=== PATIENT | female | born 1985 | race Caucasian/White ===

== ENCOUNTER 2024-06-11 09:36 | Outpatient (RCR) | payer OTHER, SELFPAY ==
[2024-06-11] MEDS: RHO(D) IMMUNE GLOBULIN 300 MCG/2 ML SYRINGE IM (16:25)
--- NOTE | 2024-08-16 12:12 | P.HP_ITS ---
H&P: HPI History of Present Illness Date/Time: 08/16/24 12:12 Chief Complaint: Repeat section Narrative: This is a 39-year-old 3 para 2 whose last menstrual period was 11/16/2023, EDC is 08/29/2024, confirmed by 10 week ultrasound who presents at 39 weeks gestation for repeat section. She is positive for group B strep she received RhoGAM at 28 weeks she has otherwise had an uncomplicated normal . [facility] Social History Social History Smoking status: Never smoker Alcohol intake: current Meds Home Medications and Allergies Home Medications Medication Instructions Recorded Confirmed Type No Home Medications 04/12/21 04/12/21 History Allergies Allergy/AdvReac Type Severity Reaction Status Date / Time No Known Allergies Allergy Verified 04/12/21 14:32 Exam Const: General: cooperative, healthy appearing and comfortable Nutritional Appearance: average body habitus Orientation/consciousness: oriented to person, oriented to place and oriented to time HENMT: Head: normal to inspection Resp: Effort & Inspection: normal respiratory effort Cardio: Rate: regular rate Rhythm: regular rhythm Heart sounds: S1 normal heart sound present and S2 normal heart sound present GI: Inspection: normal to inspection (Gravid soft uterus) Auscultation: normal bowel sounds : External Female Exam: normal external appearance Speculum Exam - Vagina: normal appearance of the vagina Speculum Exam - Cervix: normal appearance of the cervix Bimanual exam- vagina & uterus: enlarged Assessment and Plan Assessment and plan (1) Term : Code(s): Z34.90 - Encounter for supervision of normal , unspecified, unspecified trimester Status: Acute (2) Previous section: Code(s): Z98.891 - History of uterine scar from previous surgery Status: Acute (3) Positive testing for group B Streptococcus: Code(s): B95.1 - Streptococcus, group B, as the cause of diseases classified elsewhere Status: Acute Assessment and Plan: Repeat low-transverse section
== END 2024-09-09 23:59 | disposition home or self-care (01) ==
LOC: ANHLAB 09:36
PROVIDERS: Visit Provider Obstetrics & Gynecology
DX: Z29.13 Encounter for prophylactic Rho(D) immune globulin (principal); O36.0190 Maternal care for anti-D [Rh] antibodies, unspecified trimester, not applicable or unspecified; Z3A.00 Weeks of gestation of pregnancy not specified
CPT/HCPCS: 36415; 85461; 86850; 86900; 86901; 90384; J2790

== ENCOUNTER 2024-08-21 12:13 | Outpatient (CLI) | payer OTHER, SELFPAY ==
[2024-08-21 13:11] LABS: Hematocrit 34.5 % (37.0-47.0); Hemoglobin 11.5 g/dL (12.0-15.0); Mean Corpuscular HGB Conc 33.3 g/dl (32-36); Mean Corpuscular Hemoglobin 32.4 pg (26-34); Mean Corpuscular Volume 97.2 fl (80-100); Mean Platelet Volume 11.9 fl (7.4-10.4); Platelet Count Result 193 k/mm3 (150-375); Red Blood Count 3.55 M/mm3 (4.2-5.4); White Blood Count 6.4 K/mm3 (4.5-10.0)
[2024-08-21 13:47] LABS: Rapid Plasma Reagin Non-Reactive (NonReactive)
== END 2024-08-21 12:14 | disposition home or self-care (01) ==
PROVIDERS: Visit Provider Obstetrics & Gynecology
DX: Z34.93 Encounter for supervision of normal pregnancy, unspecified, third trimester (principal); Z3A.00 Weeks of gestation of pregnancy not specified
CPT/HCPCS: 36415; 85027; 86592; 86850; 86900; 86901

== ENCOUNTER 2024-08-22 05:45 | Inpatient (IN) | payer OTHER, SELFPAY ==
--- NOTE | 2024-08-16 12:15 | HP_ITS ---
This report was moved to the correct visit on 08/27/2024. The original report was signed by Cameron Mejia on 08/16/24 1215. ADDENDUM review of systems: Noncontributory Addendum Documented By: Cameron Fried MD 08/27/24721 Addendum Signed By: <Electronically signed by Cameron Fried MD> 08/27/24721 H&P: HPI History of Present Illness Date/Time: 08/16/24 12:12 Chief Complaint: Repeat section Narrative: This is a 39-year-old 3 para 2 whose last menstrual period was 11/16/2023, EDC is 08/29/2024, confirmed by 10 week ultrasound who presents at 39 weeks gestation for repeat section. She is positive for group B strep she received RhoGAM at 28 weeks she has otherwise had an uncomplicated normal . [facility] Social History Social History Smoking status: Never smoker Alcohol intake: current Meds Home Medications and Allergies Home Medications Medication Instructions Recorded Confirmed Type No Home Medications 04/12/21 04/12/21 History Allergies Allergy/AdvReac Type Severity Reaction Status Date / Time No Known Allergies Allergy Verified 04/12/21 14:32 Exam Const: General: cooperative, healthy appearing and comfortable Nutritional Appearance: average body habitus Orientation/consciousness: oriented to person, oriented to place and oriented to time HENMT: Head: normal to inspection Resp: Effort & Inspection: normal respiratory effort Cardio: Rate: regular rate Rhythm: regular rhythm Heart sounds: S1 normal heart sound present and S2 normal heart sound present GI: Inspection: normal to inspection (Gravid soft uterus) Auscultation: normal bowel sounds : External Female Exam: normal external appearance Speculum Exam - Vagina: normal appearance of the vagina Speculum Exam - Cervix: normal appearance of the cervix Bimanual exam- vagina & uterus: enlarged Assessment and Plan Assessment and plan (1) Term : Code(s): Z34.90 - Encounter for supervision of normal , unspecified, unspecified trimester Status: Acute (2) Previous section: Code(s): Z98.891 - History of uterine scar from previous surgery Status: Acute (3) Positive testing for group B Streptococcus: Code(s): B95.1 - Streptococcus, group B, as the cause of diseases classified elsewhere Status: Acute Assessment and Plan: Repeat low-transverse section This report may have been done utilizing a voice recognition system. Attempts have been made to correct errors. However, there may be uncorrected grammatical, spelling, and recognition errors present. Report Initialized date/time: Cameron Mejia MD 08/16/24 / 5 Electronically signed by: Cameron Mejia MD 08/16/24 1215 [facility]
[2024-08-22] VITALS (51 sets, daily range): BP systolic 99–172; BP diastolic 66–120; PULSE 66–97; RESP 16–20; TEMP 36.1–36.9; O2SAT 96–100; BMI 25.4; BMI 25.0
[2024-08-22] MEDS: ACETAMINOPHEN 500 MG TABLET 1000 MG PO (06:16)
[2024-08-22] MEDS: LACTATED RINGERS 1,000 ML 125 ML IV CONT ×2 (06:17→07:25)
--- NOTE | 2024-08-22 06:21 | LDADM ---
This patient, Debbie Morgan, was admitted to Labor/Delivery/Recovery 119 on 08/22/24 at 05:45. Plans for labor, pain management and were discussed with patient. Patient/family oriented to hospital policies and general routines including ID bracelet, bed and alarms, visiting hours, pain management, procedures, bathroom and other care routines, personal items, smoking policy, room service/diet and guest tray routines, infant security routines, and visiting hours. Patient/Family are encouraged to report perceived risks to care and to ask questions if they do not understand what they are told or what they should do. See OBIX for further documentation.
--- NOTE | 2024-08-22 07:01 | WPDHPUPDATE1 ---
History and Physical Update Update Date/Time: 08/22/24 07:01 History and Physical has been reviewed, including an updated exam of the patient. There are NO changes in the patient's condition. Risks, benefits, and alternatives have been discussed and questions answered. Patient agrees to proceed with procedure.
--- NOTE | 2024-08-22 07:02 | P.DS_ITS ---
DS: Admitting Diagnosis Discharge Date 08/24/2024 Admitting Diagnosis term /previous section DS: Discharge Diagnosis Discharge Diagnosis (1) Positive testing for group B Streptococcus: Code(s): B95.1 - Streptococcus, group B, as the cause of diseases classified elsewhere Status: Acute (2) Previous section: Code(s): Z98.891 - History of uterine scar from previous surgery Status: Acute (3) Term : Code(s): Z34.90 - Encounter for supervision of normal , unspecified, unspecified trimester Status: Acute (4) Hypertension affecting : Code(s): O16.9 - Unspecified maternal hypertension, unspecified trimester Status: Acute DS: Summary Hospital Course Reason for hospitalization: patient was admitted for repeat section on 08 22 24. Hospital Course: Patient's hospital course unremarkable. She remained afebrile. She was up, voiding without difficulty, eating regular diet, ambulating, and generally without complaints. She was started labetalol 200 b.i.d. 3 times a day which had her under control and will follow up with nurse is 2 days 2 weeks with il Time Spent with Patient Time attestation: Total time spent providing and/or coordinating discharge services: Exam Const: General: cooperative, healthy appearing, comfortable and well developed Nutritional Appearance: average body habitus Orientation/consciousness: oriented to person, oriented to place and oriented to time Resp: Effort & Inspection: normal respiratory effort Cardio: Rate: regular rate Rhythm: regular rhythm Heart sounds: S1 normal heart sound present and S2 normal heart sound present GI: Inspection: normal to inspection and incision ( Wound is clean dry and intact) DS: Data Data Completed and Pending Labs on day of discharge: Labs from last 24 hours 08/22/24 06:07 HIV 1&2 Ab/P24 Ag 4thGn Pending Discharge Plan Discharge Attending physician on discharge: Cameron Mejia Discharging Clinician: Cameron Mejia Patient Disposition: Home, Self-Care Activity: may shower, no straining and pelvic rest Diet: heart healthy Wound Care Instructions: follow printed instructions Patient Instructions: Antibiotic Form Patient Language: Faroese Stand Alone Forms: General Discharge Information Follow-up/Referrals: Cameron Mejia MD [Physician] - Discharge Medications: New hydrocodone-acetaminophen 5-325 mg tablet 1 tablet PO Q4H PRN (Reason: pain) Qty: 30 0RF labetalol 200 mg tablet 200 mg PO TID Qty: 90 0RF No Action No Home Medications Date of admission: 08/22/24 05:45 Primary Care Provider: PHYSICIAN,HOTEL ASSISTANT MANAGER Admitting Provider: Cameron Mejia Attending physician on admission: Cameron Mejia Condition: Stable
[2024-08-22 07:05] LABS: HIV 1/2 Ab P24 Ag Result Negative (Negative)
--- NOTE | 2024-08-22 07:19 | WPDANESEPPF ---
Anes - Initial Pre Proc Eval Procedure: Operation Date: 08/22/24 07:30 Proposed Procedures p Repeat Section - Cameron Fried MD Date/Time: 08/22/24 07:19 Surgeon: Cameron Fried MD Pre Op Diagnosis: C/S Patient Data Age: 39 Gender: F Height: 1.75 m Weight: 77 kg Last Vital Signs Pulse 92 08/22/24 06:31 BP 164/91 H 08/22/24 06:31 Pulse Ox 100 08/22/24 06:31 O2 Del Method Room Air 08/22/24 06:21 Allergies Allergy/AdvReac Type Severity Reaction Status Date / Time No Known Allergies Allergy Verified 04/12/21 14:32 Home Medications ?Medication ?Instructions ?Recorded ?Confirmed ?Type No Home Medications 04/12/21 04/12/21 History hydrocodone 5 mg-acetaminophen 325 1 tablet PO Q4H PRN pain #30 tabs 08/22/24 Rx mg tablet Laboratory Tests 08/22/24 06:07 HIV 1&2 Ab/P24 Ag 4thGn Negative (Negative) Patient hx anesthesia problems: none Family hx anesthesia problems: none Results Review: All pre-operative results and documents have been reviewed as part of the pre-operative evaluation. [facility] Family History Family History Mother Heart attack Social History Social History Smoking status: Never smoker Alcohol intake: current Do You Feel Safe in your Home?: Yes Lack of Transportation: No Lack of Food: Never True Current Housing: I Have Housing Concerned About Future Housing: No Difficulty Paying Gas/Electric Bills: No Difficulty Paying for Meds: No Currently Unemployed: No Education: Bachelor's Degree Difficulty w/ Childcare or Family Care: No Anes - Eval Final PreProcedure Day of Procedure 08/22/24 07:19 Patient weight: normal Heart: regular rate and rhythm Lungs: clear to auscultation Airway: Mallampati scale class 1 Neurological: alert and oriented Last oral intake: >/= 8 hours ASA classification: II Emergent: no Anesthetic plan: proceed Anesthesia type and monitoring: regional and standard monitoring Results Review: All pre-operative results and documents have been reviewed as part of the pre-operative evaluation. Informed Consent: The patient's anesthetic plan and its attendant risks and benefits were discussed with the patient/family/POA. Questions were solicited and answers provided to the satisfaction of the patient/family/POA.
[2024-08-22] MEDS: ONDANSETRON INJ 4 MG/2 ML VIAL IV PUSH (07:25)
[2024-08-22] MEDS: FAMOTIDINE 20 MG/2 ML VIAL IV PUSH (07:25)
--- NOTE | 2024-08-22 08:14 | P.PCNOB_ITS ---
OB - Delivery Note Procedure Delivery date: 08/22/24 Pre-op diagnosis: Previous Delivery Post-op Diagnosis: Same Induction method: None Delivery monitor: External FHT Prior to decision for section, ACOG/SMFM labor guidelines were considered and discussed with the patient and staff. Decision made to proceed with the section.: Yes Procedure Performed: Repeat Surgeon: Cameron Fried MD Anesthesia type: Spinal Description of Procedure/Findings: Patient was prepped draped in the normal sterile fashion placed in the supine position. Under excellent spinal anesthetic the abdomen was entered through the previous Pfannenstiel incision this was progressive layers of fascia. Fascia incised midline carried in upward out fashion bilaterally. Underlying muscles sharply dissected. Parietal peritoneum oblique a clamps and by sharp dissection. This carried superiorly and inferiorly the dome of the bladder. Bladder blade placed. Bladder flap formed. Bladder blade returned. A low- transverse incision made the head delivered in the CONTRERAS position. Nuchal cord checked was noted to be loose x1 and relieved around the occiput anterior posterior shoulder delivered spontaneously. Cord clamped x2 and cut passed off the table given Apgars of 8 and 9 at 1 and 5minutes respectively. Placenta delivered intact manually. Uterus delivered from the abdomen wrapped in a moist towel. After assuring no membranes or debris remained in the uterus, the uterus was closed with continuous running locking 0 Vicryl from lateral edge to lateral edge. This was followed by 2nd imbricating running locking 0 Vicryl from lateral edge to lateral edge. Hemostasis was assured. The uterus returned to the abdomen. Clots and debris removed and the hysterotomy incision inspected 1 last time. It was hemostatic and the laps removed and accounted for. The fascia closed with continuous running 0 Vicryl from lateral edge to lateral edge. Irrigation subcutaneous layer and the skin closed with 4 Monocryl glue. QBL was 435. All sponge, needle, instrument counts were correct. There were no immediate complications
[2024-08-22] MEDS: OXYTOCIN 30 UNITS/NS 500 ML 30 UNITS/500 ML BAG 125 UNITS IV CONT (10:46)
--- NOTE | 2024-08-22 10:58 | OBPPTRN ---
Patient transferred to post room # 285 via stretcher. Support person present. Oriented to unit, room, information board, rooming in, admission packet and security measures. Patient verbalizes understanding.
[2024-08-22] MEDS: LABETALOL HCL 100 MG TABLET 200 MG (11:50)
[2024-08-22] MEDS: LIDOCAINE 5% PATCH 1 PATCH TRANSDERM (11:50)
[2024-08-22] MEDS: KETOROLAC 15 MG/ML VIAL (*BKC) IV PUSH ×2 (12:39→20:30)
[2024-08-22] MEDS: ACETAMINOPHEN 325 MG TABLET 650 MG PO ×2 (12:40→20:28)
[2024-08-22] MEDS: SIMETHICONE 80 MG TAB.CHEW PO ×2 (12:41→17:34)
[2024-08-22] MEDS: DEXTROSE 5%/0.45% SOD CHL 1,000 ML 125 ML IV CONT (12:41)
[2024-08-22] MEDS: DOCUSATE SODIUM 100 MG CAPSULE PO ×2 (12:41→20:28)
[2024-08-22] MEDS: NIFEdipine 10 MG CAPSULE PO (13:41)
--- NOTE | 2024-08-22 16:25 | PC.NURSE ---
1530. Introductions were made, then consulted with patient to assess needs related to . Discussed with mother her?plans to feed?her and the?experience so far. Mom reports she breastfed her first two children for about 1 year. Resources provided for inpatient and outpatient services with the feeding sheet, mom/baby guide and name written on the communication board. Mother voiced understanding of information and will call if there is a request for assistance. Nipple shield provided to mother due to mothers request. Reviewed good handwashing, cleaning the nipple shield and the appropriate way to apply and use as a tool. Discussed with mom the nipple shield precautions, possible complications associated with the risks and benefits. Reviewed practicing with a nipple shield, then without and how to protect the milk supply and production. Mom and baby guide referred to as a resource for outpatient services, community resources and when to call a provider. Mom voiced understanding of the importance of hand expression, nipple stimulation and initiating a pumping schedule if continues to nurse with the shield. 1600. Breast pump provided due to mothers request. Instructions given on cleaning, care, usage, that there should be no pain, pumping schedule for milk production, collection, and storage of human milk. Patient was assessed for correct placement, flange size, to pump for comfort and nipple stretching/stimulation for adequate milk production every 3 hours (8 times in 24 hours) 1-2 times at night. Parents are encouraged to record the pumping schedule on the feeding sheet.?Mother voiced understanding of the education shared along with mom/baby guide and the pump measurement, flange fit handout for additional resource information. Reported to the Primary RN.
[2024-08-22] MEDS: LABETALOL HCL 100 MG TABLET 200 MG PO (20:38)
[2024-08-23] VITALS (7 sets, daily range): BP systolic 122–146; BP diastolic 74–97; PULSE 81–92; RESP 16–18; TEMP 36.5–36.7; O2SAT 97–100
[2024-08-23] MEDS: KETOROLAC 15 MG/ML VIAL (*BKC) IV PUSH ×2 (02:56→08:34)
[2024-08-23] MEDS: ACETAMINOPHEN 325 MG TABLET 650 MG PO ×4 (02:56→20:45)
[2024-08-23 05:53] LABS: Basophils Percent Auto 0.3 % (0.2-1.2); Eosinophils Percent Auto 0.1 % (0-4.4); Hematocrit 28.1 % (37.0-47.0); Hemoglobin 9.6 g/dL (12.0-15.0); Immature Granulocyte Absolute 0.03 K/mm3 (0.00-0.031); Immature Granulocyte Percent A 0.3 % (0-0.5); Lymphocytes Absolute Auto 0.92 K/mm3 (0.9-3.2); Lymphocytes Percent Auto 9.2 % (18.3-44.2); Mean Corpuscular HGB Conc 34.2 g/dl (32-36); Mean Corpuscular Volume 96.6 fl (80-100); Mean Platelet Volume 11.2 fl (7.4-10.4); Monocytes Absolute Auto 0.6 K/mm3 (0.1-0.6); Monocytes Percent Auto 5.7 % (2.6-8.5); Neutrophils Absolute Auto 8.4 K/mm3 (1.3-6.7); Neutrophils Percent Auto 84.4 % (45.5-73.1); Platelet Count Result 166 k/mm3 (150-375); Red Blood Count 2.91 M/mm3 (4.2-5.4); Red Cell Distribution Width 13.2 % (11.5-14.5)
[2024-08-23] MEDS: LABETALOL HCL 100 MG TABLET 200 MG PO ×3 (05:56→20:49)
--- NOTE | 2024-08-23 07:10 | PM.OBPNVD ---
OB - PN: Subj Subjective Date/time seen: 08/23/24 07:10 Patient comments: no complaints, pain well controlled and tolerating diet [place] baby status: doing well and nursing well OB - PN: Obj Data Labs 08/23/24 05:42 Labs: Laboratory Results - last 24 hr 08/23/24 05:42 WBC 10.0 RBC 2.91 L Hgb 9.6 L Hct 28.1 L MCV 96.6 MCH 33.0 MCHC 34.2 RDW 13.2 Plt Count 166 MPV 11.2 H Immature Gran % (Auto) 0.3 Neut % (Auto) 84.4 H Lymph % (Auto) 9.2 L [place] % (Auto) 5.7 Eos % (Auto) 0.1 Baso % (Auto) 0.3 Lymph # (Auto) 0.92 [place] # (Auto) 0.6 Eos # (Auto) 0.0 Baso # (Auto) 0.0 Abs Immat Gran (auto) 0.03 Absolute Neuts (auto) 8.4 H Absolute Nucleated RBC 0.000 Nucleated RBC % 0.0 Blood Type A Negative Antibody Screen Negative OB - PN A/P Assessment and Plan (1) Previous section: Code(s): Z98.891 - History of uterine scar from previous surgery Status: Acute (2) Term : Code(s): Z34.90 - Encounter for supervision of normal , unspecified, unspecified trimester Status: Acute (3) Positive testing for group B Streptococcus: Code(s): B95.1 - Streptococcus, group B, as the cause of diseases classified elsewhere Status: Acute Assessment and Plan: cont labetolol Time Spent With Patient Time: Total time spent is greater than 50% in coordination of care (as documented) at patient's floor/unit and/or counseling patient: Review of Systems Review of Systems: All systems reviewed & are unremarkable except as noted in HPI and below Exam Const: General: cooperative and healthy appearing Nutritional Appearance: average body habitus Orientation/consciousness: oriented to person, oriented to place and oriented to time HENMT: Head: normal to inspection Resp: Effort & Inspection: normal respiratory effort Cardio: Rate: regular rate Rhythm: regular rhythm Heart sounds: S1 normal heart sound present and S2 normal heart sound present GI: Inspection: normal to inspection and incision (cdi)
[2024-08-23] MEDS: POLYSACCHARIDE IRON COMPLEX 150 MG CAPSULE PO ×2 (08:34→16:50)
[2024-08-23] MEDS: MULTIVIT/MIN/PREN/FOL AC/IRON TABLET 1 TAB PO (08:34)
[2024-08-23] MEDS: SIMETHICONE 80 MG TAB.CHEW PO ×3 (08:34→16:50)
[2024-08-23] MEDS: DOCUSATE SODIUM 100 MG CAPSULE PO ×2 (08:34→16:50)
[2024-08-23] MEDS: RHO(D) IMMUNE GLOBULIN 300 MCG/2 ML SYRINGE IM (10:25)
[2024-08-23] MEDS: HYDROcodone/acetaminophen (*CRX) 5-325 MG TABLET 1 TAB PO ×3 (12:00→23:40)
[2024-08-23] MEDS: LIDOCAINE 5% PATCH 1 PATCH TRANSDERM (12:00)
[2024-08-23] MEDS: IBUPROFEN 600 MG TABLET PO ×2 (14:31→20:45)
[2024-08-24 00:22] VITALS: BP 136/92; PULSE 90; O2SAT 97
[2024-08-24] MEDS: ACETAMINOPHEN 325 MG TABLET 650 MG PO ×2 (03:54→09:53)
[2024-08-24] MEDS: IBUPROFEN 600 MG TABLET PO ×2 (03:54→09:53)
[2024-08-24 03:56] VITALS: PULSE 84
[2024-08-24] MEDS: LABETALOL HCL 100 MG TABLET 200 MG PO ×2 (03:56→12:11)
[2024-08-24] MEDS: HYDROcodone/acetaminophen (*CRX) 5-325 MG TABLET 1 TAB PO ×2 (05:20→12:12)
[2024-08-24 07:30] VITALS: BP 140/96; PULSE 81; RESP 18; TEMP 36.6; O2SAT 100
--- NOTE | 2024-08-24 07:48 | P.PNOB_ITS ---
OB - PN: Subj Subjective Date/time seen: 08/24/24 07:48 Patient comments: no complaints, pain well controlled and tolerating diet [place] baby status: doing well and nursing well OB - PN: Obj Data Labs 08/23/24 05:42 Labs: Laboratory Results - last 24 hr 08/23/24 05:42 Blood Type A Negative Antibody Screen Negative Screen Negative Baby's Blood Type Ab pos Baby's CRYSTAL Negative Doses of RhIg Required 1 OB - PN A/P Assessment and Plan (1) Hypertension affecting : Code(s): O16.9 - Unspecified maternal hypertension, unspecified trimester Status: Acute (2) Positive testing for group B Streptococcus: Code(s): B95.1 - Streptococcus, group B, as the cause of diseases classified elsewhere Status: Acute (3) Previous section: Code(s): Z98.891 - History of uterine scar from previous surgery Status: Acute (4) Term : Code(s): Z34.90 - Encounter for supervision of normal , unspecified, unspecified trimester Status: Acute Time Spent With Patient Time: Total time spent is greater than 50% in coordination of care (as documented) at patient's floor/unit and/or counseling patient: Review of Systems 2 Review of Systems: All systems reviewed & are unremarkable except as noted in HPI and below Exam 2 Const: General: cooperative, healthy appearing and comfortable Nutritional Appearance: average body habitus Orientation/consciousness: oriented to person, oriented to place and oriented to time Resp: Effort & Inspection: normal respiratory effort Cardio: Rate: regular rate Rhythm: regular rhythm Heart sounds: S1 normal heart sound present and S2 normal heart sound present GI: Inspection: normal to inspection
--- NOTE | 2024-08-24 09:15 | PC.NURSE ---
Consulted with mother concerning needs and she shared her ability to independently latch infant and how to pump and bottle feed breastmilk. Mother chooses to exclusively pump and bottle feed at this time rather than putting baby to breast. She did have a nipple shield when she put baby to breast and the feeding plan for discharge includes the shield education and pumping recommendations as well as tips on weaning from the shield. Mother is feeding appropriately for growth of and understands stimulating to eat if needed. Infant has had appropriate feedings in the last 24 hours meets the outcomes for weight, output, blood sugar and jaundice at this time. Reinforced understanding of milk production, transition of milk, signs of adequate intake, transition of stool, prevention/relief of engorgement, plugged ducts, mastitis, community resources, and when to call a provider using the resource of the feeding sheet along with the mom and baby guide. Mother voiced understanding of the information shared, is confident to continue effectively her at home, when to call for assistance, denies any additional assistance or education at this time. Reported to the Primary RN. 1100- Mother called out for a nipple shield to feed baby because she already packed her pump parts and it is time for baby to feed. Patient did not require assistance and since she previously was using the nipple shield no further education was needed. Reported to Primary RN.
[2024-08-24] MEDS: SIMETHICONE 80 MG TAB.CHEW PO ×2 (09:53→12:12)
[2024-08-24] MEDS: POLYSACCHARIDE IRON COMPLEX 150 MG CAPSULE PO (09:53)
[2024-08-24] MEDS: DOCUSATE SODIUM 100 MG CAPSULE PO (09:54)
[2024-08-24] MEDS: MULTIVIT/MIN/PREN/FOL AC/IRON TABLET 1 TAB PO (09:54)
--- NOTE | 2024-08-24 10:15 | WPDANLDPN2 ---
Anes-Prog Note L&D Date/Time: 08/24/24 10:15 Comfortable throughout: labor and section Neuraxial method: epidural Epidural/Spinal procedure site: clean & non-tender Neuro status: Neuro function grossly intact. Cardiovascular status: normal Respiratory status: normal Airway patency: baseline Mental status: baseline Post-Op hydration status: normal Vital Signs: Last Vital Signs Temp 97.9 F 08/24/24 07:30 Pulse 81 08/24/24 07:30 Resp 18 08/24/24 07:30 BP 140/96 H 08/24/24 07:30 Pulse Ox 100 08/24/24 07:30 O2 Del Method Room Air 08/24/24 07:30 Pain score (VAS): 0 Post-procedural complaints: pruritis moderate, treatment effective Patient feedback: Patient satisfied with anesthetic care.
--- NOTE | 2024-08-24 10:16 | WPDANLDNPN2 ---
Anes-Prog Note L&D-Neuraxial Date/Time: 08/24/24 10:16 Neuraxial medications: epidural PF morphine Opiod-related complaints: pruritis moderate, treatment effective Patient feedback: Patient satisfied with post-operative pain management.
[2024-08-24 12:11] VITALS: PULSE 81
[2024-08-24 12:22] VITALS: BP 157/97; PULSE 81; RESP 18; O2SAT 100
[2024-08-24 13:24] VITALS: BP 151/90
[2024-08-26 11:05] VITALS: BP 172/102; PULSE 89; RESP 20; TEMP 36.6; O2SAT 98
== END 2024-08-24 16:11 | disposition home or self-care (01) | DRG 540 ==
LOC: ANHLDR 05:51 → ANHOB2 11:01
PROVIDERS: Admitting Provider Obstetrics & Gynecology; Visit Provider Obstetrics & Gynecology
PROC: 10D00Z1 Extraction of Products of Conception, Low, Open Approach (ICD-10-PCS; CPT 59514; principal; 2024-08-22 07:30)
DX: O34.211 Maternal care for low transverse scar from previous cesarean delivery (principal); Z37.0 Single live birth; Z3A.39 39 weeks gestation of pregnancy; O99.824 Streptococcus B carrier state complicating childbirth; O69.81X0 Labor and delivery complicated by cord around neck, without compression, not applicable or unspecified
CPT/HCPCS: 36415; 85025; 85027; 85461; 86592; 86703; 86850; 86900; 86901; 90384; A9270; G0432; J1596; J1885; J2274; J2371; J2405; J2590; J2790; J7120